=== PATIENT | female | born 1950 | race Caucasian/White ===

== ENCOUNTER 2016-09-12 23:13 | Emergency (ER) | payer OTHER | END 2016-09-13 02:55 | disposition home or self-care (01) | LOC: ER 23:13 | DX: J06.9 Acute upper respiratory infection, unspecified (principal); J44.9 Chronic obstructive pulmonary disease, unspecified; E88.01 Alpha-1-antitrypsin deficiency; Z87.891 Personal history of nicotine dependence; Z90.710 Acquired absence of both cervix and uterus; Z88.1 Allergy status to other antibiotic agents; Z88.2 Allergy status to sulfonamides; Z88.5 Allergy status to narcotic agent; Z79.899 Other long term (current) drug therapy; Z79.82 Long term (current) use of aspirin ==

== ENCOUNTER 2016-10-21 11:13 | Observation (INO) | payer OTHER ==
[~2016-10-21] VITALS: Ht 162.6 cm; Wt 62.0 kg
[~2016-10-21 11:13] MED LIST: ACEPHEN650 MG RC; ACETAMINOPHEN325 MG PO; ALAWAY10 ML OP; ALBUTEROL0.63 MG/3 INH; ALLEGRA ALLERG180 MG PO; ASCORBIC ACID500 MG PO; ASPIRIN EC81 MG PO; CEFDINIR300 MG PO; CEFPROZIL500 MG PO; DAILY MULTIPLE1 EAC1 PO; DALIRESP500 MCG PO; DIFLUCAN150 MG PO; DULERA 200 MCG8.8 GM INH; ENULOSE10 GM/15 M PO; FLAGYL500 MG PO; FLONASE 0.05% N16 GM; K-TAB ER10 MEQ PO; LACTULOSE20 GM/30 M PO; LASIX20 MG PO; LASIX40 MG PO; LEVAQUIN750 MG PO; LEVOCETIRIZINE D5 MG PO; LORATADINE-D 21 EACH PO; MAG6464 MG PO; MEDROL4 M1 PO; MOTRIN600 MG PO; MUCOMYST HHN; NYSTATIN100000 UNI PO; OMEPRAZOLE40 MG PO; PERCOCET 10-321 EACH PO; POTASSIUM CHLO10 MEQ PO; PREDNISONE10 MG PO; PRILOSEC OTC20 MG PO; REQUIP1 MG PO; SINGULAIR10 MG PO; SYMBICORT 16010.2 GM INH; TUDORZA PRESS400 MCG INH; VERAPAMIL ER180 MG PO; ZANTAC300 MG PO; ZOCOR40 MG PO
[2016-10-21 11:47] LABS: BASO # 0.1 10_X3_uL (0.0-0.1); BASO % 0.4 % (0.1-1.2); EOS # 0.2 10_X3_uL (0.0-0.4); EOS % 0.9 % (0.7-5.8); GRAN % 78.4 % (34.0-71.1); HEMATOCRIT 37.5 % (34-45); HEMOGLOBIN 12.4 g/dL (11.2-15.7); LYMPH # 1.7 10_X3_uL (1.2-3.7); LYMPH % 10.2 % (19.3-51.7); MEAN CORPUSCULAR HEMOGLOBIN 27.3 pg (27.0-33.0); MEAN CORPUSCULAR HGB CONC 33.1 g/dL (32.0-36.0); MEAN CORPUSCULAR VOLUME 82.6 fL (79-95); MEAN PLATELET VOLUME 9.3 fl (7.5-11.5); MONO # 1.7 10_X3_uL (0.2-0.9); MONO % 10.1 % (4.7-12.5); PLATELET COUNT 226 x10_3/uL (182-369); RED BLOOD COUNT 4.54 x10_6/uL (3.9-5.2); RED CELL DISTRIBUTION WIDTH 14.6 % (11.7-14.4); WHITE BLOOD COUNT 16.5 x10_3/uL (4.0-10.0)
[2016-10-21 12:11] LABS: BLOOD UREA NITROGEN 10 mg/dL (7-18); CALCIUM 8.9 mg/dL (8.7-10.7); CARBON DIOXIDE 21 mmol/L (21-32); CREATINE KINASE 115 U/L (21-215); CREATININE 0.6 mg/dL (0.6-1.3); GLUCOSE,RANDOM 96 mg/dL (70-99); POTASSIUM 4.2 mmol/L (3.5-5.1); SODIUM 135 mmol/L (136-145)
[2016-10-21 12:53] LABS: URINE BACTERIA TRACE (NONE SEEN); URINE BILIRUBIN NEGATIVE (NEGATIVE); URINE BLOOD TRACE (NEGATIVE); URINE GLUCOSE (UA) NORMAL (NORMAL); URINE KETONE NEGATIVE (NEGATIVE); URINE LEUKOCYTE ESTERASE TRACE (NEGATIVE); URINE NITRATE NEGATIVE (NEGATIVE); URINE PROTEIN NEGATIVE (NEGATIVE); URINE RBC 0-5 /[HPF] (0-2); URINE SQUAMOUS EPITHELIAL CELL 0-10 /[HPF] (NONE SEEN); URINE WBC 0-5 /[HPF] (0-5); UROBILINOGEN NORMAL mg/dL (<1.0)
[2016-10-22 07:12] LABS: AHDL CHOLESTEROL 81 mg/dL (>40); ALBUMIN 3.2 gm/dL (3.4-5.0); ALKALINE PHOSPHATASE 62 U/L (50-136); ALT/SGPT 16 U/L (3.5-33.9); AST/SGOT 13 U/L (7.04-26.96); BASO % 0.1 % (0.1-1.2); BILIRUBIN,TOTAL 0.32 mg/dL (0.0-1.0); CALCIUM 8.7 mg/dL (8.7-10.7); CARBON DIOXIDE 23 mmol/L (21-32); CHOLESTEROL 152 mg/dL (0-200); CREATININE 0.6 mg/dL (0.6-1.3); GLUCOSE,RANDOM 192 mg/dL (70-99); GRAN # 12.1 10_X3_uL (1.6-6.1); GRAN % 92.4 % (34.0-71.1); HEMATOCRIT 31.8 % (34-45); HEMOGLOBIN 10.3 g/dL (11.2-15.7); LDL CHOLESTEROL 68 mg/dL (0-99); LYMPH # 0.6 10_X3_uL (1.2-3.7); LYMPH % 4.5 % (19.3-51.7); MEAN CORPUSCULAR HEMOGLOBIN 27.2 pg (27.0-33.0); MEAN CORPUSCULAR HGB CONC 32.4 g/dL (32.0-36.0); MEAN CORPUSCULAR VOLUME 83.9 fL (79-95); MEAN PLATELET VOLUME 9.9 fl (7.5-11.5); MONO # 0.4 10_X3_uL (0.2-0.9); PLATELET COUNT 219 x10_3/uL (182-369); POTASSIUM 4.4 mmol/L (3.5-5.1); RED BLOOD COUNT 3.79 x10_6/uL (3.9-5.2); RED CELL DISTRIBUTION WIDTH 14.5 % (11.7-14.4); SODIUM 132 mmol/L (136-145); TOTAL PROTEIN 5.5 gm/dL (6.4-8.2); TRIGLYCERIDES 35 mg/dL (30-200); WHITE BLOOD COUNT 13.1 x10_3/uL (4.0-10.0)
[2016-10-22 07:17] LABS: BLOOD UREA NITROGEN 19 mg/dL (7-18)
[2016-10-23 06:38] LABS: HEMATOCRIT 32.9 % (34-45); HEMOGLOBIN 10.7 g/dL (11.2-15.7); MEAN CORPUSCULAR HGB CONC 32.5 g/dL (32.0-36.0); MEAN CORPUSCULAR VOLUME 82.9 fL (79-95); RED BLOOD COUNT 3.97 x10_6/uL (3.9-5.2); RED CELL DISTRIBUTION WIDTH 14.6 % (11.7-14.4); WHITE BLOOD COUNT 18.2 x10_3/uL (4.0-10.0)
[2016-10-23 07:03] LABS: ALBUMIN 3.2 gm/dL (3.4-5.0); BILIRUBIN,TOTAL 0.54 mg/dL (0.0-1.0); CALCIUM 8.5 mg/dL (8.7-10.7); POTASSIUM 3.7 mmol/L (3.5-5.1); TOTAL PROTEIN 5.7 gm/dL (6.4-8.2)
== END 2016-10-23 16:22 | disposition home or self-care (01) ==
LOC: ER 11:13 → MS 12:54
PROVIDERS: Internal Medicine; ADMIT Family Medicine
DX: J44.0 Chronic obstructive pulmonary disease with (acute) lower respiratory infection (principal); J20.9 Acute bronchitis, unspecified; J44.1 Chronic obstructive pulmonary disease with (acute) exacerbation; E87.1 Hypo-osmolality and hyponatremia; E88.01 Alpha-1-antitrypsin deficiency; Z87.11 Personal history of peptic ulcer disease; Z90.49 Acquired absence of other specified parts of digestive tract; Z90.710 Acquired absence of both cervix and uterus; Z98.890 Other specified postprocedural states; D72.829 Elevated white blood cell count, unspecified; B96.89 Other specified bacterial agents as the cause of diseases classified elsewhere; Z88.2 Allergy status to sulfonamides; Z88.5 Allergy status to narcotic agent; Z88.1 Allergy status to other antibiotic agents; Z79.899 Other long term (current) drug therapy; Z79.82 Long term (current) use of aspirin
CPT/HCPCS: 36415; 71020; 80048; 80053; 80061; 81001; 82550; 82553; 82962; 83036; 83605; 83880; 85025; 86738; 87040; 87070; 87186; 87205; 87449; 93005; 94640; 94664; 96361; 96365; 96366; 96367; 96372; 96375; 96376; 99070; 99284-25; G0378; J2920; J2930

== ENCOUNTER 2016-11-09 13:29 | Emergency (ER) | payer OTHER | END 2016-11-09 16:25 | disposition home or self-care (01) | LOC: ER 13:29 | DX: S63.502A Unspecified sprain of left wrist, initial encounter (principal); S63.92XA Sprain of unspecified part of left wrist and hand, initial encounter; W01.0XXA Fall on same level from slipping, tripping and stumbling without subsequent striking against object, initial encounter; Y92.009 Unspecified place in unspecified non-institutional (private) residence as the place of occurrence of the external cause; J44.9 Chronic obstructive pulmonary disease, unspecified; E88.01 Alpha-1-antitrypsin deficiency; Z88.2 Allergy status to sulfonamides; Z88.5 Allergy status to narcotic agent; Z88.1 Allergy status to other antibiotic agents; Z79.899 Other long term (current) drug therapy; Z79.891 Long term (current) use of opiate analgesic | CPT/HCPCS: 73110; 73130; 99070; 99283-25 ==